=== PATIENT | female | born 1945 | race African-American/Black ===

== ENCOUNTER 2017-11-07 12:55 | Emergency (ER) | payer OTHER, MEDICARE ==
[~2017-11-07] VITALS: Ht 175.3 cm; Wt 88.0 kg
[2017-11-07 13:09] VITALS: BP_SYST 163
--- NOTE | 2017-11-07 13:20 | NUR ---
Patient to ER bed 3 to gown for evaluation. Side rails up. Report received from ASHWIN King.
--- NOTE | 2017-11-07 13:21 | NUR ---
Pt complains of a bump under the left underarm for a couple weeks. Per patient, pain level is at a 3/10 currently. Pt saw her PCP but was recommended to come to ED. Pt states she had finished her course of antibiotcs but bump is still there. Patient reports bump had gotten smaller but had moved from axillary to medial bicep. Pt denies N/V or fever. No other injuries/complaints per patient or noted.
--- NOTE | 2017-11-07 13:25 | NUR ---
ER Dr. Vergara at bedside examining patient.
[2017-11-07 13:32] VITALS: BP_SYST 138
--- NOTE | 2017-11-07 13:32 | NUR ---
Patient given written and verbal discharge instructions and verbalizes understanding. ER MD discussed with patient the results and treatment provided. Patient in stable condition. ID arm band removed. Rx of Motrin and Clindamycin given. Patient educated on pain management and to follow up with PMD. Pain Scale 3. Dr. Vergara aware and sent prescription home with patient. Opportunity for questions provided and answered.
== END 2017-11-07 13:32 | disposition home or self-care (01) ==
LOC: SED 12:55
DX: L02.412 Cutaneous abscess of left axilla (principal)
CPT/HCPCS: 99283